=== PATIENT | female | born 1995 | race Caucasian/White ===

== ENCOUNTER 2016-12-08 08:10 | Emergency (ER) | payer OTHER ==
[~2016-12-08] VITALS: Ht 162.6 cm; Wt 72.6 kg
[~2016-12-08 08:10] MED LIST: APRI 0.15 MG-0.1 TAB PO; IBUPROFEN600 M1 PO; INTUNIV2 MG PO; MOTRIN800 MG PO; PRILOSEC 20MG C20 MG PO; RIZATRIPTAN BEN10 MG PO; TOPIRAMATE25 MG PO; ZOFRAN ODT4 M1 SL
[2016-12-08 08:14] VITALS: BP 113/71
--- NOTE | 2016-12-08 08:16 | ED INFLUENZA/URI COMPLAINT ---
History of Present Illness General Chief Complaint: Upper Respiratory Sx/Fever Stated Complaint: PER PT COLD SYMPTOMS Source: patient Exam Limitations: no limitations Vital Signs & Intake/Output Vital Signs & Intake/Output Vital Signs Date Time Temp Pulse Resp B/P Pulse O2 O2 Flow FiO2 Ox Delivery Rate 12/08 0814 98.8 76 20 113/71 100 Room Air Allergies Coded Allergies: NO KNOWN ALLERGIES (10/21/14) Reconcile Medications Azithromycin (Zithromax) 500 MG TABLET 1 TAB PO DAILY SINUSITIS Benzonatate (Tessalon Perle) 100 MG CAPSULE 1 CAP PO TID PRN COUGH Meloxicam (Mobic) 15 MG TABLET 1 TAB PO DAILY PRN HEADACHE Mometasone Furoate (Nasonex) 50 MCG SPRAY.PUMP 2 SPRAY NASB DAILY CONGESTION Triage Note: PT C/O MIGRAINE ON LEFT SIDE X 3 DAYS, EYES WATERING AND STATES SHE JUST CAN'T GET RID OF THIS COLD Triage Nurses Notes Reviewed? yes Onset: Gradual Duration: constant Timing: recent history Severity: severe Severity Numbers: 7 : No Patient currently breastfeeds: No HPI: Patient is a 21-year-old female with a past medical history of migraine headaches who presents to emergency room with a three-day history of upper respiratory and coryza symptoms in which she states that symptoms have been persistent of productive yellow cough, nasal congestion, headache, sinus pressure and pain, head congestion and chills. Patient states that yesterday due to multiple episodes of coughing she had one episode of nonbloody nonbilious emesis. Patient is able tolerate by mouth. Last menstrual period was yesterday where she just completed her cycle. Patient has been taking [id number] DayQuil without relief of symptoms. 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 Patient denies any fevers sore throat neck pain neck stiffness abdominal pain shortness of breath chest pain. (MALOU PEREIRA) Past History Travel History Traveled to [place] past 21 day No Medical History Any Pertinent Medical History? 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 No (MALOU PEREIRA) Review of Systems Review of Systems Constitutional: Reports: see HPI, chills. Denies: fever. EENTM: Reports: see HPI, eye tearing, nasal congestion. Respiratory: Reports: see HPI, cough. Cardiovascular: Reports: no symptoms. GI: Reports: see HPI, nausea, vomiting. Denies: abdominal pain. Genitourinary: Reports: no symptoms. Musculoskeletal: Reports: see HPI. Skin: Reports: no symptoms. Neurological/Psychological: Reports: see HPI, headache. Hematologic/Endocrine: Reports: see HPI. Immunologic/Allergic: Reports: no symptoms. All Other Systems: Reviewed and Negative (MALOU PEREIRA) Physical Exam Physical Exam General Appearance: no apparent distress, alert, comfortable Head: atraumatic Eyes: Bilateral: normal appearance, PERRL, EOMI. Ears, Nose, Throat: nasal congestion, nasal drainage, LEFT MAXILLA SINUS POINT TENDERNESS NOTED Neck: normal inspection, supple, full range of motion Respiratory: normal breath sounds, chest non-tender, no respiratory distress Cardiovascular: regular rate/rhythm Peripheral Pulses: 2+ radial (R), 2+ radial (L) Gastrointestinal: normal bowel sounds, soft Back: normal inspection, normal range of motion Extremities: normal inspection Neurologic/Psych: no motor/sensory deficits, awake, alert, oriented x 3, normal gait Skin: intact, normal color, warm/dry Core Measures Severe Sepsis Present: No Septic Shock Present: No (MALOU PEREIRA) Progress Differential Diagnosis: influenza, meningitis, neutropenia, otitis, pneumonia, pharyngitis, sinusitis Plan of Care: Patient looks well and nontoxic appearing afebrile and has concerns of upper respiratory infection and sinusitis. Patient was strongly advised to follow up with primary care doctor in 2 days if no better and she will comply Initial ED EKG: none (MALOU PEREIRA) Departure Departure Disposition: HOME OR SELF CARE Condition: Stable Clinical Impression Primary Impression: Sinusitis Secondary Impressions: Headache, Upper respiratory disease Referrals: JED HUA,JENNIFER (PCP/Family) Additional Instructions: As discussed begin [id number] antihistamine medication such as Zantac for your symptoms, begin buye-shi-mafmyir Sudafed for congestion. Begin the prescriptions of meloxicam for headaches, Tessalon Perles for cough, Nasonex for congestion, azithromycin for your sinus infection. Prescription is waiting at [facility] pharmacy. If no better in 2 days follow-up with her primary care doctor. If symptoms worsen or if you develop a new concerning symptom return to emergency room immediately Departure Forms: Customer Survey General Discharge Information Prescriptions: Current Visit Scripts Azithromycin (Zithromax) 1 TAB PO DAILY #5 TAB Benzonatate (Tessalon Perle) 1 CAP PO TID PRN COUGH #21 CAP Mometasone Furoate (Nasonex) 2 SPRAY NASB DAILY #1 INHAL Meloxicam (Mobic) 1 TAB PO DAILY PRN HEADACHE #20 TAB (MALOU PEREIRA) PA/CARD RUNNER Co-Sign Statement Statement: ED Attending supervision documentation- [] I saw and evaluated the patient. I have also reviewed all the pertinent lab results and diagnostic results. I agree with the findings and the plan of care as documented in the PA's/CARD RUNNER's documentation. x I have reviewed the ED Record and agree with the PA's/CARD RUNNER's documentation. [] Additions or exceptions (if any) to the PAs/CARD RUNNER's note and plan are summarized below: [] (OZ HUA,TOMMY)
[2016-12-08] MEDS ORDERED: MOBIC15 M1 PO (08:26)
[2016-12-08] MEDS ORDERED: ZITHROMAX500 M2 PO (08:26)
[2016-12-08] MEDS ORDERED: TESSALON PERLE100 M1 PO (08:26)
[2016-12-08] MEDS ORDERED: NASONEX17 GM NASB (08:26)
== END 2016-12-08 09:09 ==
LOC: ERH 08:10
DX: J32.9 Chronic sinusitis, unspecified (principal); J39.9 Disease of upper respiratory tract, unspecified